=== PATIENT | female | born 1970 | race Caucasian/White ===

== ENCOUNTER 2023-03-08 09:53 | Outpatient (CLI) | payer OTHER, SELFPAY ==
--- NOTE | 2023-03-08 10:05 | MM_ITS ---
WS: [id number] VIEWS: MLO and CC views both breasts. 3D digital tomosynthesis is also included in this exam. Comparison made with prior exam of 09/12/2011, 11/25/2013, 11/25/2016, 01/19/2018, 03/14/2019.. Findings: There was no sign of mass, architectural distortion or suspicious calcification in either breast. Th ere are scattered areas of fibroglandular density MM/[id number] Impression: BI-RADS: 2 benign finding Follow-up in one year. This mammogram was also analyzed by the Computer Aided Detection System R2 Imag e Transplant Nurse Practitioner.
== END 2023-03-08 09:54 | disposition home or self-care (01) ==
PROVIDERS: PCP Clinical Nurse Specialist Adult Health; Referring Provider Family Medicine; Visit Provider Obstetrics & Gynecology
DX: Z12.31 Encounter for screening mammogram for malignant neoplasm of breast (principal)
CPT/HCPCS: 77063; 77067

== ENCOUNTER → 2023-06-22 09:13 | Outpatient (BNVA) | payer OTHER, SELFPAY | PROVIDERS: PCP Clinical Nurse Specialist Adult Health; Visit Provider Family Medicine | DX: J30.2 Other seasonal allergic rhinitis (principal); I10 Essential (primary) hypertension; N92.0 Excessive and frequent menstruation with regular cycle; E66.01 Morbid (severe) obesity due to excess calories; G47.33 Obstructive sleep apnea (adult) (pediatric); R05.8 Other specified cough; G47.00 Insomnia, unspecified; G35 Multiple sclerosis | CPT/HCPCS: 80053; 80061; 82728; 83036; 83550; 84439; 84443; 85025 ==

== ENCOUNTER 2023-06-23 08:41 | Emergency (ER) | payer OTHER, SELFPAY ==
[2023-06-23] VITALS (8 sets, daily range): BP systolic 135–186; BP diastolic 84–113; PULSE 72–93; RESP 17–18; TEMP 36.8–36.9; O2SAT 96–100; BMI 47.1
[2023-06-23 09:15] LABS: Basophils # 0.1 10^3/uL (0.0-0.1); Basophils % 0.8 %; Eosinophils # 0.1 10^3/uL (0.0-0.8); Eosinophils % 1.7 %; Hematocrit 24.9 % (36-47); Lymphocytes % 26.4 %; Mean Corpuscular HGB Conc 27.3 g/dL (30-55); Mean Corpuscular Volume 69.7 fl (85-98); Mean Platelet Volume 9.3 fL (7.4-10.4); Monocytes # 0.5 10^3/uL (0.2-0.9); Neutrophils # 4.94 10^3/uL (1.8-7.7); Neutrophils % 63.8 %; Nucleated Red Blood Cells % 0 %; Platelet Count 425 10^3/cmm (157-399); Red Blood Count 3.57 10^6/uL (3.85-5.65); Red Cell Distribution Width 15.9 % (12.1-15.1); White Blood Count 7.73 10^3/uL (3.29-11.43)
--- NOTE | 2023-06-23 09:32 | W.ED.RECABL ---
HPI - Recheck/Abnormal Lab/Rx General: Chief Complaint: Recheck/Abnormal Lab/Rx Stated Complaint: Vaisler sent for low blood count Time Seen by Provider: 06/23/23 09:02 Source: patient Mode of arrival: ambulatory Limitations: no limitations History of Present Illness: Patient presents emergency department today at the request of her primary care doctor for decreased hemoglobin. Patient reports continuous menstrual bleeding for the last 6 months. She has notified her INFORMATION TECHNOLOGY TEACHER-Dr. Tran in [place] who believes she has a fibroid affecting her cervix and inferior portion of her uterus causing her continuous bleeding. She is supposed to be having a procedure in August. She saw her primary care doctor yesterday who checked lab work. She was notified today that her hemoglobin is very low and was told to come to the emergency department for repeat H&H and blood products. It does look like her primary care doctor has initiated a referral to hematology oncology for transfusion-most likely for iron infusions. Patient reports chronic fatigue. She has a history of MS. She indicated she had taken iron tablets in the past but, made her stomach upset so she stopped taking them. Review of Systems General: Reports: 10 or more systems reviewed and unremarkable except in HPI and below PFSH ED PFSH: Medical History Benign essential HTN Insomnia Menorrhagia Morbid obesity Multiple sclerosis AMY (obstructive sleep apnea) Surgical History No history of previous surgery Family History Family/Other Cancer breast cancer-aunt Father Dementia Hypertension Social History Smoking and tobacco status: never smoked Alcohol intake: never Substance/Drug Use: never Household members: spouse and family Housing: House Marital status: Physical Exam Const: COMMON NORMALS: no acute distress, patient oriented x3 and alert Eye: COMMON NORMALS: Equal, round and reactive pupils present, EOMs intact bilaterally and conjunctivae normal CONJUNCTIVA: Yes conjunctivae normal PUPIL: Yes Equal, round and reactive pupils present Neck/C-Spine: COMMON NORMALS: no JVD Lymph: LYMPHATIC: no lymphadenopathy noted Resp: COMMON NORMALS: normal respiratory effort, No retractions and No use of accessory muscles Cardio: COMMON NORMALS: no JVD and regular rate RATE: regular rate : COMMON NORMALS: Yes no CVA tenderness BLADDER/KIDNEY EXAM: Yes no CVA tenderness Back/Pelvis: COMMON NORMALS: no CVA tenderness, thoracic and lumbar spine normal to inspection and thoraco-lumbar ROM normal Extremity: COMMON NORMALS: normal to inspection, full ROM and no pedal edema Neuro: COMMON NORMALS: patient oriented x3 SENSORIUM/ORIENTATION: Yes alert Skin: COMMON NORMALS: no rashes or lesions noted and turgor normal GENERAL SKIN EXAM: no rashes or lesions noted and turgor normal Course Vital Signs: Vital signs: Vital Signs Temperature 98.5 F 06/23/23 12:56 Pulse Rate 81 06/23/23 14:04 Respiratory Rate 17 06/23/23 12:56 Blood Pressure 135/90 06/23/23 13:57 Pulse Oximetry 98 06/23/23 14:04 Oxygen Delivery Me thod Room Air 06/23/23 13:57 MDM - Recheck/Abnormal Lab/Rx Medical Decision Making Patient presents today at the request of her primary care doctor for concerns of decreased hemoglobin. I was notified by Dr. Bell that he had reached out to the patient's primary care doctor regarding transfusions through the emergency department. Patient's hemoglobin has dropped since yesterday and she reports being symptomatic with fatigue so we are going to provide 1 unit of blood here in the ER. Otherwise, patient can continue her treatment plan with her primary care doctor for iron infusions and continued monitoring. Patient tolerated her infusion here in the emergency department without any difficulty. Patient will continue to monitor at home. Differential Diagnosis Unlikely warfarin-induced coagulopathy (Iron deficiency anemia, blood loss anemia, menorrhagia) Lab Data 06/23/23 09:00 06/23/23 09:00 Laboratory Results WBC 7.73 10^3/uL (3.29-11.43) 06/23/23 09:00 RBC 3.57 10^6/uL (3.85-5.65) L 06/23/23 09:00 Hgb 6.80 g/dL (11.27-16.99) L 06/23/23 09:00 Hct 24.9 % (36-47) L 06/23/23 09:00 MCV 69.7 fl (85-98) L 06/23/23 09:00 MCH 19.0 pg (27-33) L 06/23/23 09:00 MCHC 27.3 g/dL (30-55) L 06/23/23 09:00 RDW 15.9 % (12.1-15.1) H 06/23/23 09:00 Plt Count 425 10^3/cmm (157-399) H 06/23/23 09:00 MPV 9.3 fL (7.4-10.4) 06/23/23 09:00 Neut % (Auto) 63.8 % 06/23/23 09:00 Lymph % (Auto) 26.4 % 06/23/23 09:00 Angelina % (Auto) 7.0 % 06/23/23 09:00 Eos % (Auto) 1.7 % 06/23/23 09:00 Baso % (Auto) 0.8 % 06/23/23 09:00 Neut # (Auto) 4.94 10^3/uL (1.8-7.7) 06/23/23 09:00 Lymph # (Auto) 2.0 10^3/uL (0.8-4.8) 06/23/23 09:00 Angelina # (Auto) 0.5 10^3/uL (0.2-0.9) 06/23/23 09:00 Eos # (Auto) 0.1 10^3/uL (0.0-0.8) 06/23/23 09:00 Baso # (Auto) 0.1 10^3/uL (0.0-0.1) 06/23/23 09:00 Nucleated RBC % (auto) 0 % 06/23/23 09:00 Nucleated RBCs # 0.0 /100WBC 06/23/23 09:00 Sodium 136 mmol/L (136-145) 06/23/23 09:00 Potassium 3.3 mmol/L (3.5-5.1) L 06/23/23 09:00 Chloride 99 mmol/L (98-107) 06/23/23 09:00 Carbon Dioxide 26 mmol/L (22-29) 06/23/23 09:00 Anion Gap 14.3 (5-19) 06/23/23 09:00 BUN 13 mg/dL (6-20) 06/23/23 09:00 Creatinine 0.6 mg/dL (0.5-0.9) 06/23/23 09:00 GFR Calculation 104.6 mL/min (90-130) 06/23/23 09:00 Glucose 90 mg/dL (65-115) 06/23/23 09:00 Calculated Osmolality 282 mOsm/kg (285-295) L 06/23/23 09:00 Calcium 9.2 mg/dL (8.5-10.5) 06/23/23 09:00 Blood Type A Positive 06/23/23 09:00 Rho(D) Type Positive 06/23/23 09:00 Antibody Screen Negative 06/23/23 09:00 Crossmatch See Detail 06/23/23 09:00 No radiology studies performed this visit Discharge Plan Discharge Patient Disposition: Home Clinical Impression: Decreased hemoglobin Condition: Stable Prescriptions: No Action hydrochlorothiazide 25 mg tablet 25 mg PO DAILY Qty: 90 3RF losartan 100 mg tablet 100 mg PO DAILY Qty: 90 3RF levocetirizine [Xyzal] 5 mg tablet 5 mg PO DAILY Qty: 60 1RF albuterol sulfate 90 mcg/actuation HFA aerosol inhaler 1 inh inhalation QID PRN (Reason: shortness of breath or wheezing) Qty: 8.5 2RF fluticasone propionate [Flonase Allergy Relief] 50 mcg/actuation spray,suspension 2 spray intranasal DAILY PRN (Reason: allergy symptoms) Qty: 16 2RF Rx Instructions: administer into each nostril zolpidem 10 mg tablet 10 mg PO DAILY Qty: 30 5RF Multi-Vitamins Tablet 1 tab PO DAILY norgestimate-ethinyl estradiol 0.18/0.215/0.25 mg-35 mcg (28) tablet 1 tab PO DAILY Discharge Orders: Discharge ED (Routine); Ordered 06/23/23 Ordered By: Jonelle Lino Referrals: Jeb Malik MD [Primary Care Provider] - Discharge Diet: Usual diet Discharge Activity: Increase activity as tolerated Patient Instructions: Iron Rich Diet (ED), Anemia (ED) Activity Restrictions/Additional Instructions: Labs do confirm decreased hemoglobin and a diagnosis of anemia. Be sure to keep all upcoming appointments with INFORMATION TECHNOLOGY TEACHER for more definitive management of your bleeding. Call your primary care doctor to let them know you are seen and evaluated here in the emergency department. It does appear that they have orders for infusions to continue treatment between now and your procedure in August. I provided you some information about anemia to look over at home. Coding Level of Care Code ED Reclamation Worker for Bud Santizo
[2023-06-23 09:46] LABS: Anion Gap 14.3 (5-19); Blood Urea Nitrogen 13 mg/dL (6-20); Calcium 9.2 mg/dL (8.5-10.5); Carbon Dioxide 26 mmol/L (22-29); Chloride 99 mmol/L (98-107); Glomerular Filtration Rate 104.6 mL/min (90-130); Glucose 90 mg/dL (65-115); Osmolality Calculated 282 mOsm/kg (285-295); Potassium 3.3 mmol/L (3.5-5.1); Sodium 136 mmol/L (136-145)
--- NOTE | 2023-06-23 12:54 | PC.NURSE ---
ASSUMED CARE OF PATIENT AT 1255 FROM ROSALINA NEVAREZ.
== END 2023-06-23 14:05 | disposition home or self-care (01) ==
PROVIDERS: Emergency Medicine; Emergency Provider Physician Assistant; PCP Family Medicine
DX: D64.9 Anemia, unspecified (principal); I10 Essential (primary) hypertension; G35 Multiple sclerosis
CPT/HCPCS: 36430; 80048; 85025; 86850; 86900; 86920; 99284; P9016

== ENCOUNTER 2023-06-29 07:13 | Oncology outpatient (recurring) (ONCR) | payer OTHER, SELFPAY ==
[2023-06-29 07:47] VITALS: BP 128/61; PULSE 81; RESP 17; TEMP 36.3; O2SAT 97
[2023-06-29] MEDS: iron sucrose 200 MG in sodium chloride 0.9% (100 ml) 100 ML 220 MG IV (08:45)
[2023-06-29] MEDS: sodium chloride 0.9% 250 ML 50 ML IV (08:45)
[2023-06-29 09:35] VITALS: BP 154/83; PULSE 68; RESP 17; TEMP 36.3; O2SAT 98
== END 2023-07-08 23:59 | disposition home or self-care (01) ==
PROVIDERS: PCP Family Medicine; Visit Provider Family Medicine
DX: D50.9 Iron deficiency anemia, unspecified (principal)
CPT/HCPCS: 96365; J1756; J7050

== ENCOUNTER → 2023-07-03 06:51 | Day surgery (SDC) | payer OTHER, SELFPAY ==
[2023-07-03] MEDS: iron sucrose 200 MG in sodium chloride 0.9% (100 ml) 100 ML 220 MG IV (07:09)
[2023-07-03 07:15] VITALS: BP 152/99; PULSE 96; RESP 18; TEMP 36.3; O2SAT 95
== END ==
PROVIDERS: PCP Family Medicine; Visit Provider Family Medicine
DX: D50.9 Iron deficiency anemia, unspecified (principal)
CPT/HCPCS: 96365; J1756

== ENCOUNTER → 2023-07-05 06:49 | Day surgery (SDC) | payer OTHER, SELFPAY ==
[2023-07-05 06:57] VITALS: BP 156/94; PULSE 98; RESP 18; TEMP 36.2; O2SAT 98
[2023-07-05] MEDS: iron sucrose 200 MG in sodium chloride 0.9% (100 ml) 100 ML 220 MG IV (07:05)
== END ==
PROVIDERS: PCP Family Medicine; Visit Provider Family Medicine
DX: D50.9 Iron deficiency anemia, unspecified (principal)
CPT/HCPCS: 96365; J1756

== ENCOUNTER → 2023-07-07 06:46 | Day surgery (SDC) | payer OTHER, SELFPAY ==
[2023-07-07 06:55] VITALS: BP 150/97; PULSE 91; RESP 18; TEMP 36.3; O2SAT 93
[2023-07-07] MEDS: iron sucrose 200 MG in sodium chloride 0.9% (100 ml) 100 ML 220 MG IV (06:57)
== END ==
PROVIDERS: PCP Family Medicine; Visit Provider Family Medicine
DX: D50.9 Iron deficiency anemia, unspecified (principal)
CPT/HCPCS: 96365; J1756

== ENCOUNTER → 2023-07-10 06:43 | Day surgery (SDC) | payer OTHER, SELFPAY ==
[2023-07-10] MEDS: iron sucrose 200 MG in sodium chloride 0.9% (100 ml) 100 ML 220 MG IV (07:00)
[2023-07-10 07:11] VITALS: BP 140/88; PULSE 97; RESP 18; TEMP 36.1; O2SAT 96
== END ==
LOC: GILAB 06:45
PROVIDERS: PCP Family Medicine; Visit Provider Family Medicine
DX: D50.9 Iron deficiency anemia, unspecified (principal)
CPT/HCPCS: 96365; J1756

== ENCOUNTER 2024-03-11 09:08 | Oncology outpatient (recurring) (ONCR) | payer OTHER, SELFPAY ==
--- NOTE | 2024-03-11 09:12 | MM_ITS ---
WS: [id number] BILATERAL SCREENING DIGITAL TOMOSYNTHESIS MAMMOGRAM WITH CAD HISTORY: SCREENING COMPARISON: 03/08/2023, 03/14/2019 Bilateral CC and MLO views with tomosynthesis and synthetic mammography submitted. Computer aided det ection analyzed. Breast composition: There are scattered areas of fibroglandular density. No suspicious masses, microc alcifications or architectural distortion. Intramammary lymph nodes and benign calcifications are sta ble over several years. MM/[id number] IMPRESSION: BI-RADS: 2-Benign FOLLOW UP: 1 Year Follow-up
== END 2024-04-07 23:59 | disposition home or self-care (01) ==
LOC: RAD 09:09 → ONCMED 04-23 06:13
PROVIDERS: PCP Family Medicine; Visit Provider Family Medicine
DX: Z12.31 Encounter for screening mammogram for malignant neoplasm of breast (principal)
CPT/HCPCS: 77063; 77067

== ENCOUNTER → 2024-05-22 11:04 | Outpatient (BNVA) | payer OTHER, SELFPAY | PROVIDERS: PCP Family Medicine; Visit Provider Family Medicine | DX: I10 Essential (primary) hypertension (principal); D50.9 Iron deficiency anemia, unspecified; E66.01 Morbid (severe) obesity due to excess calories | CPT/HCPCS: 80053; 82728; 83036; 83550; 84443; 85025 ==

== ENCOUNTER → 2025-03-17 15:50 | Outpatient (BNVA) | payer BC, SELFPAY | PROVIDERS: PCP Family Medicine; Visit Provider Family Medicine | DX: I10 Essential (primary) hypertension (principal); D50.9 Iron deficiency anemia, unspecified | CPT/HCPCS: 80053; 80061; 82728; 83550; 85025 ==

== ENCOUNTER 2025-03-27 09:08 | Outpatient (CLI) | payer BC, SELFPAY ==
--- NOTE | 2025-03-27 09:14 | MM_ITS ---
WS: [id number] BILATERAL SCREENING DIGITAL TOMOSYNTHESIS MAMMOGRAM WITH CAD HISTORY: SCREENING COMPARISON: 03/11/2024, 03/08/2023 Bilateral CC and MLO views with tomosynthesis and synthetic mammography submitted. Computer aided detection analyzed. Breast composition: There are scattered areas of fibroglandular density. No suspicious masses, microcalcifications or architectural distortion. Long-term stability intramammary lymph nodes. There are a few benign scattered calcifications within each breast. MM/MM scr tomosynthesis [id number] IMPRESSION: BI-RADS: 2 - Benign. FOLLOW UP: 1 Year Follow-up
== END 2025-03-27 09:09 | disposition home or self-care (01) ==
LOC: RAD 09:10
PROVIDERS: PCP Family Medicine; Visit Provider Family Medicine
DX: Z12.31 Encounter for screening mammogram for malignant neoplasm of breast (principal)
CPT/HCPCS: 77063; 77067